=== PATIENT | female | born 1945 | race Caucasian/White ===

== ENCOUNTER 2019-07-13 05:04 | Emergency (ER) | payer MEDICARE, OTHER ==
[~2019-07-13] VITALS: Ht 162.6 cm; Wt 88.0 kg
--- NOTE | 2019-07-13 05:14 | ED Neurological Problem ---
General Stated Complaint: VERTIGO Source: patient, EMS Exam Limitations: no limitations History of Present Illness Date Seen by Provider: Jul 13, 2019 Time Seen by Provider: 05:10 Initial Comments 73-year-old female presents with dizziness and vomiting. She reports that she is "having issues with her ears" at she feels like her lymph nodes are swollen in the area. That she feels like she is getting some decreased hearing. She reports that she's having significant vertigo with vomiting. She denies any headache, chest pain, focal weakness. She was given 4 Zofran for the vomiting by EMS with minimal relief. She denies any other symptoms Allergies and Home Medications Allergies Coded Allergies: No Known Drug Allergies (Unverified , 07/13/19) Patient Home Medication List Home Medication List Reviewed: Yes Review of Systems Review of Systems Constitutional: No chills; dizziness; No fever Eyes: Denies Blurred Vision Ears, Nose, Mouth, Throat: see HPI Cardiovascular: No chest pain, No palpitations Gastrointestinal: No abdominal pain; vomiting Genitourinary: no symptoms reported Past Avxwtbp-Xwpnsl-Dckhio Hx Past Med/Social Hx: Reviewed Nursing Past Med/Soc Hx Patient Social History Recent Foreign Travel: No Contact w/Someone Who Travel: No Physical Exam Vital Signs Capillary Refill : Height, Weight, BMI Height: '" Weight: lbs. oz. kg; BMI Method: General Appearance: mild distress (small amount of fluid bilateral TMs, nonbulging no erythema) HEENT: other (small amount of fluid bilateral TMs, nonbulging no erythema) Respiratory: lungs clear, normal breath sounds Cardiovascular: normal peripheral pulses, regular rate, rhythm Gastrointestinal: non tender, soft Extremities: normal range of motion, non-tender Neurologic/Psychiatric: alert, oriented x 3 Progress/Results/Core Measures Results/Orders Lab Results Laboratory Tests Test 07/13/19 05:20 Range/Units White Blood Count 13.5 H 4.3-11.0 10^3/uL Red Blood Count 5.32 4.35-5.85 10^6/uL Hemoglobin 14.9 11.5-16.0 G/DL Hematocrit 47 35-52 % Mean Corpuscular Volume 88 80-99 FL Mean Corpuscular Hemoglobin 28 25-34 PG Mean Corpuscular Hemoglobin Concent 32 32-36 G/DL Red Cell Distribution Width 14.5 10.0-14.5 % Platelet Count 417 H 130-400 10^3/uL Mean Platelet Volume 9.9 7.4-10.4 FL Neutrophils (%) (Auto) 70 42-75 % Lymphocytes (%) (Auto) 21 12-44 % Monocytes (%) (Auto) 5 0-12 % Eosinophils (%) (Auto) 3 0-10 % Basophils (%) (Auto) 1 0-10 % Neutrophils # (Auto) 9.5 H 1.8-7.8 X 10^3 Lymphocytes # (Auto) 2.8 1.0-4.0 X 10^3 Monocytes # (Auto) 0.6 0.0-1.0 X 10^3 Eosinophils # (Auto) 0.4 H 0.0-0.3 10^3/uL Basophils # (Auto) 0.1 0.0-0.1 10^3/uL Sodium Level 141 135-145 MMOL/L Potassium Level 3.2 L 3.6-5.0 MMOL/L Chloride Level 105 98-107 MMOL/L Carbon Dioxide Level 23 21-32 MMOL/L Anion Gap 13 5-14 MMOL/L Blood Urea Nitrogen 25 H 7-18 MG/DL Creatinine 0.64 0.60-1.30 MG/DL Estimat Glomerular Filtration Rate > 60 BUN/Creatinine Ratio 39 Glucose Level 173 H 70-105 MG/DL Calcium Level 9.4 8.5-10.1 MG/DL Corrected Calcium 9.2 8.5-10.1 MG/DL Total Bilirubin 0.2 0.1-1.0 MG/DL Aspartate Amino Transf (AST/SGOT) 15 5-34 U/L Alanine Aminotransferase (ALT/SGPT) 12 0-55 U/L Alkaline Phosphatase 108 40-136 U/L Total Protein 7.6 6.4-8.2 GM/DL Albumin 4.2 3.2-4.5 GM/DL My Orders Orders - PALAFOX,CHAZ L DO Diphenhydramine Injection (Benadryl Inje (07/13/19 05:15) Promethazine Injection (Phenergan Injec (07/13/19 05:15) Cbc With Automated Diff (07/13/19 05:14) Comprehensive Metabolic Panel (07/13/19 05:14) Ct Head Wo-R/O Stroke (07/13/19 05:14) Ed Iv/Invasive Line Start (07/13/19 05:55) Ns Iv 500 Ml (Sodium Chloride 0.9%) (07/13/19 05:55) Iv Push [facility] Ed (07/13/19 ) Medications Given in ED Vital Signs/I&O Diagnostic Imaging Diagonstic Imaging: CT Plain Films/CT/US/NM/MRI: head Reviewed: Reviewed [place] Study Departure Impression Primary Impression: Vertigo Disposition: HOME, SELF-CARE Condition: Stable Departure-Patient Inst. Patient Instructions: Vertigo (a Type of Dizziness) (DC) Add. Discharge Instructions: Follow up with primary care provider as needed, if symptoms return or worsen Meclizine, over the counter as directed on package The Emergency Department focuses on treating and ruling out life-threatening diseases. Whenever possible, a diagnosis is given. However most patient's are given an impression based on the history, physical exam, and workup during their brief time in the ER. Information about probable diagnosis and other educational material has been provided. Please take the time to read and understand this information. It is very important that he follow up with a doctor as discussed during her visit today. Failure to adhere to your follow-up instructions may result in severe disability, injury or so please make sure to keep your a ppointments. Please keep in mind the emergency department is not designed to be your primary care or "family doctor" and not urgent issues are best evaluated by an outpatient physician CHAZ PALAFOX DO Jul 13, 2019 05:14 POS
[2019-07-13] MEDS ORDERED: diphenhydrAMINE 50 MG/ML INJ (BENADRYL) IVP ONE (05:15)
[2019-07-13] MEDS ORDERED: PROMETHAZINE INJ 25 MG/ML (PHENERGAN) AMP IVP ONE (05:15)
[2019-07-13 05:37] LABS: BASOPHILS # (AUTO) 0.1 10^3/uL (0.0-0.1); BASOPHILS % (AUTO) 1 % (0-10); EOSINOPHILS # (AUTO) 0.4 10^3/uL (0.0-0.3); EOSINOPHILS % (AUTO) 3 % (0-10); HEMATOCRIT 47 % (35-52); HEMOGLOBIN 14.9 G/DL (11.5-16.0); LYMPHOCYTES # (AUTO) 2.8 X 10^3 (1.0-4.0); LYMPHOCYTES % (AUTO) 21 % (12-44); MEAN CORPUSCULAR HEMOGLOBIN 28 PG (25-34); MEAN CORPUSCULAR HGB CONC 32 G/DL (32-36); MEAN CORPUSCULAR VOLUME 88 FL (80-99); MEAN PLATELET VOLUME 9.9 FL (7.4-10.4); MONOCYTES # (AUTO) 0.6 X 10^3 (0.0-1.0); MONOCYTES % (AUTO) 5 % (0-12); NEUTROPHILS # (AUTO) 9.5 X 10^3 (1.8-7.8); NEUTROPHILS % (AUTO) 70 % (42-75); PLATELET COUNT 417 10^3/uL (130-400); RED CELL DISTRIBUTION WIDTH 14.5 % (10.0-14.5); WHITE BLOOD COUNT 13.5 10^3/uL (4.3-11.0)
--- NOTE | 2019-07-13 05:38 | NUR ---
pt stated earlier she thought she had diarrhea in her pants, Jerri Rn went to change and clean pt but pt refused.
[2019-07-13] MEDS ORDERED: NS IV 500 ML 500 ML IV ONE (05:55)
--- NOTE | 2019-07-13 05:56 | Diagnostic Imaging Report ---
PROCEDURE: CT head wo r/o stroke. TECHNIQUE: Multiple contiguous axial images were obtained through the brain without the use of intravenous contrast. Auto Exposure Controls were utilized during the CT exam to meet ALARA standards for radiation dose reduction. INDICATION: Severe dizziness. COMPARISON: None available. FINDINGS: No hyperdense hemorrhage or space-occupying mass. No hydrocephalus or midline shift. Orta-white matter differentiation is well-preserved. Right mastoid air cells are clear. Potential mastoidectomy on the left. Paranasal sinuses are clear. Orbits are unremarkable. IMPRESSION: 1. No acute intracranial process by CT. 2. Probable left mastoidectomy. 3. Findings are in agreement with the preliminary report. Dictated by: Dictated on workstation # [id number]
[2019-07-13 06:02] LABS: ALANINE AMINOTRANSFERASE 12 U/L (0-55); ALBUMIN 4.2 GM/DL (3.2-4.5); ALKALINE PHOSPHATASE 108 U/L (40-136); BILIRUBIN,TOTAL 0.2 MG/DL (0.1-1.0); BUN/CREATININE RATIO 39; CALCIUM 9.4 MG/DL (8.5-10.1); CARBON DIOXIDE 23 MMOL/L (21-32); CHLORIDE 105 MMOL/L (98-107); CREATININE SERUM 0.64 MG/DL (0.60-1.30); GFR ESTIMATED > 60; GLUCOSE 173 MG/DL (70-105); POTASSIUM 3.2 MMOL/L (3.6-5.0); SODIUM 141 MMOL/L (135-145); TOTAL PROTEIN 7.6 GM/DL (6.4-8.2)
--- NOTE | 2019-07-13 06:40 | NUR ---
contacted pts sister Shayla, she will be here to get pt soon
--- NOTE | 2019-07-13 06:57 | NUR ---
report to mary tejada
== END 2019-07-13 07:13 | disposition home or self-care (01) ==
LOC: ER FS 05:07 → MERGE 05:07 → ER FS 07:13
DX: R42 Dizziness and giddiness (principal)
CPT/HCPCS: 36415; 70450; 80053; 85025; 96374; 96375

== ENCOUNTER → 2020-05-13 | Outpatient (CLI) | payer MEDICARE, OTHER ==
--- NOTE | 2020-05-13 10:16 | Diagnostic Imaging Report ---
INDICATION: Fall and right wrist pain. TIME OF EXAM: 10:03 AM 3 views of the right wrist were obtained. The distal radius and ulna are intact. The oblique view does demonstrate a lucency through the waist of the scaphoid suspicious for a fracture. There are degenerative changes between the capitate and lunate. There is also 1st CMC joint degenerative changes with joint space narrowing and osteophyte formation. Metacarpals are intact. IMPRESSION: 1. Features are concerning for a nondisplaced fracture through the waist of the scaphoid. CT through the right wrist may be useful for further evaluation. 2. Degenerative changes, as described. Dictated by: Dictated on workstation # [id number]
== END ==
LOC: RAD FS 09:46
PROVIDERS: ATTEND Nurse Practitioner
DX: M19.031 Primary osteoarthritis, right wrist (principal); W19.XXXA Unspecified fall, initial encounter
CPT/HCPCS: 73110

== ENCOUNTER → 2020-06-03 | Outpatient (CLI) | payer MEDICARE ==
--- NOTE | 2020-06-03 09:46 | Diagnostic Imaging Report ---
Indication: Followup right wrist fracture. Time of exam: 9:04 AM Correlation is made with prior radiograph from 05/13/2020. Distal radius and ulna are intact. Previously noted lucency in the region of the waist of the scaphoid is not well seen on today's study. There are significant degenerative changes at the triscaphe and 1st CMC joints. No other fractures are identified. Metacarpals are intact. There are degenerative changes at the capitate lunate joint. Impression: Degenerative changes. No definite fracture is seen. The questionable lucency at the waist of the scaphoid on prior study is not well seen on today's study. Dictated by: Dictated on workstation # [id number]
== END ==
LOC: RAD FS 08:56
PROVIDERS: ATTEND Nurse Practitioner
DX: M19.031 Primary osteoarthritis, right wrist (principal)
CPT/HCPCS: 73110

== ENCOUNTER → 2020-06-27 | Outpatient (CLI) | payer MEDICARE ==
--- NOTE | 2020-06-27 13:35 | Diagnostic Imaging Report ---
INDICATION: Right wrist pain. EXAMINATION: Four views of the right wrist are obtained and compared to 06/03/2020. FINDINGS: Lucency in the scaphoid waist is seen only on the scaphoid view, compatible with nondisplaced fracture. The alignment is unchanged compared to the previous studies. There are diffuse degenerative findings throughout the carpal bones. IMPRESSION: Stable alignment of nondisplaced fracture of the scaphoid. Diffuse degenerative changes are stable as well. Dictated by: Dictated on workstation # [id number]
== END ==
LOC: RAD FS 11:18
PROVIDERS: ATTEND Nurse Practitioner
DX: S62.024D Nondisplaced fracture of middle third of navicular [scaphoid] bone of right wrist, subsequent encounter for fracture with routine healing (principal); M19.031 Primary osteoarthritis, right wrist
CPT/HCPCS: 73110

== ENCOUNTER → 2020-07-22 | Outpatient (CLI) | payer MEDICARE ==
--- NOTE | 2020-07-22 16:17 | Diagnostic Imaging Report ---
Right wrist at 2:47. Indication: Navicular bone fracture, wrist pain. 4 views were obtained. The prior exam of 06/27/2020 noted a nondisplaced fracture of the waist of the scaphoid bone. That injury is not as well appreciated on this exam. There is no fracture or acute bony abnormality noted. 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 These findings are similar to the prior exam. The soft tissues are unremarkable. Impression: 1. The fracture of the waist of the navicular bone seen previously is not as well appreciated on this exam. The overall appearance of the navicular bone is stable when compared to the prior study. 2. There is no acute bony abnormality identified. Dictated by: Dictated on workstation # [id number]
--- NOTE | 2020-07-22 16:18 | Diagnostic Imaging Report ---
Right hand at 2:47. Indication: Thumb pain A single AP view of the hand and 2 views of the thumb were obtained. There is no fracture, dislocation or acute bony abnormality evident. As noted on the previous right wrist exam of 07/07/2020, there is severe degenerative disease of the triscaphe joint and at least moderate degenerative disease of the 1st metacarpophalangeal joint and mild degenerative disease of the interphalangeal joint. The osseous structures also seem demineralized. The soft tissues are unremarkable. Impression: 1. There is no acute bony abnormality identified. 2. If clinical concern regarding an occult fracture persists and further imaging is desired, then MRI would be recommended. The suspected fracture of the navicular bone seen previously could also be further evaluated by MRI. Dictated by: Dictated on workstation # [id number]
== END ==
LOC: RAD FS 14:37
PROVIDERS: ATTEND Nurse Practitioner
DX: S62.024D Nondisplaced fracture of middle third of navicular [scaphoid] bone of right wrist, subsequent encounter for fracture with routine healing (principal); X58.XXXD Exposure to other specified factors, subsequent encounter
CPT/HCPCS: 73110; 73140

== ENCOUNTER → 2021-06-04 | Outpatient (CLI) | payer MEDICARE ==
--- NOTE | 2021-06-04 10:15 | Diagnostic Imaging Report ---
Indication: Left knee pain AP, oblique, and lateral views left knee are obtained No fracture or acute bone abnormality seen. There is mild medial joint space narrowing with osteophyte formation. The patellofemoral joint shows osteophyte formation and joint space narrowing. There is a joint effusion in the suprapatellar recess. IMPRESSION: Mild to moderate degenerative changes of the left knee with evidence of joint effusion. No acute fracture. Dictated by: Dictated on workstation # [id number]
== END ==
LOC: RAD FS 09:30
PROVIDERS: ATTEND Nurse Practitioner
DX: M17.12 Unilateral primary osteoarthritis, left knee (principal)
CPT/HCPCS: 73562

== ENCOUNTER → 2021-08-26 | Outpatient (CLI) | payer MEDICARE ==
--- NOTE | 2021-08-26 13:26 | Diagnostic Imaging Report ---
PROCEDURE: CT sinuses without contrast TECHNIQUE: Multiple contiguous axial images were obtained through the sinuses without the use of intravenous contrast. Coronal and sagittal reformations were then performed. Auto Exposure Controls were utilized during the CT exam to meet ALARA standards for radiation dose reduction. INDICATION: Acute recurrent ethmoidal sinus pain. Comparison with CT head of 07/13/2019. FINDINGS: There is complete opacification of the right maxillary sinus and anterior ethmoid air cells on the right and the right frontal sinus now. The left maxillary ethmoid and frontal sinuses are clear. The sphenoid sinus is clear. There is mild deviation nasal septum to the left. The turbinates appear normal. There are no destructive bony lesions. IMPRESSION: The opacification of the right maxillary, ethmoid and frontal sinus. Dictated by: Dictated on workstation # [id number]
== END ==
LOC: RAD FS 10:29
PROVIDERS: ATTEND Family Medicine
DX: J01.21 Acute recurrent ethmoidal sinusitis (principal); J32.0 Chronic maxillary sinusitis; J01.10 Acute frontal sinusitis, unspecified
CPT/HCPCS: 70486

== ENCOUNTER → 2022-01-13 | Outpatient (CLI) | payer MEDICARE ==
--- NOTE | 2022-01-13 11:26 | Diagnostic Imaging Report ---
INDICATION: Radiculopathy with back pain. FINDINGS: 3 views. There is grade 1 anterolisthesis of L5 on S1. There is minimal anterolisthesis of L4 on L5. Alignment is otherwise good. Body height is well-maintained. There is narrowing of the L5-S1 disc space. There is facet hypertrophy L5-S1. SI joints show rather dense sclerotic changes bilaterally. The aorta is densely calcified with mild ectasia. IMPRESSION: 1. Grade 1 spondylolisthesis of L5 on S1. No definite pars defects noted though oblique views were not obtained. Associated disc disease. 2. Minimal anterolisthesis of L4 on L5. Dictated by: Dictated on workstation # [id number]
== END ==
LOC: RAD FS 09:36
PROVIDERS: ATTEND Family Medicine
DX: M43.16 Spondylolisthesis, lumbar region (principal); M43.17 Spondylolisthesis, lumbosacral region; M54.16 Radiculopathy, lumbar region
CPT/HCPCS: 72100